=== PATIENT | male | born 1980 | race African-American/Black ===

== ENCOUNTER 2023-04-12 16:57 | Emergency (ER) | payer OTHER ==
[2023-04-12] MEDS ORDERED: Ketorolac Tromethamine 30 MG/ML VIAL ONE (19:26)
== END 2023-04-12 19:26 | disposition home or self-care (01) ==
LOC: CSHERS 16:57
DX: K02.9 Dental caries, unspecified (principal); I10 Essential (primary) hypertension; J45.909 Unspecified asthma, uncomplicated; E10.9 Type 1 diabetes mellitus without complications
CPT/HCPCS: 96372; 99282; J1885